=== PATIENT | male | born 1985 | race Caucasian/White ===

== ENCOUNTER 2016-11-28 03:57 | Emergency (ER) | payer OTHER ==
[~2016-11-28] VITALS: Ht 182.9 cm; Wt 86.6 kg
[~2016-11-28 03:57] MED LIST: ZOFRAN ODT4 MG PO
[2016-11-28] MEDS ORDERED: NAPROXEN500 MG PO (05:19)
[2016-11-28] MEDS ORDERED: NORCO 5/3251 TABLET PO (05:49)
[2016-11-28 05:52] VITALS: BP 101/76
== END 2016-11-28 05:52 | disposition home or self-care (01) ==
LOC: EME 03:57
DX: S80.11XA Contusion of right lower leg, initial encounter (principal); S96.911A Strain of unspecified muscle and tendon at ankle and foot level, right foot, initial encounter; W22.8XXA Striking against or struck by other objects, initial encounter
CPT/HCPCS: 73552; 73610; 99281; 99283

== ENCOUNTER 2016-12-05 13:10 | Emergency (ER) | payer OTHER ==
[~2016-12-05] VITALS: Ht 185.4 cm; Wt 87.8 kg
[~2016-12-05 13:10] MED LIST changes: +NAPROXEN500 MG PO; +NORCO 5/3251 TABLET PO
[2016-12-05] MEDS ORDERED: ULTRAM50 MG PO (16:47)
[2016-12-05 17:20] VITALS: BP 113/62
== END 2016-12-05 18:14 | disposition home or self-care (01) ==
LOC: EME 13:10 → RME 16:43
DX: M79.651 Pain in right thigh (principal); S70.11XD Contusion of right thigh, subsequent encounter; V49.40XA Driver injured in collision with unspecified motor vehicles in traffic accident, initial encounter
CPT/HCPCS: 99281; 99284

== ENCOUNTER 2017-06-02 11:13 | Emergency (ER) | payer OTHER ==
[~2017-06-02] VITALS: Ht 185.4 cm; Wt 86.4 kg
[~2017-06-02 11:13] MED LIST changes: +ULTRAM50 MG PO
[2017-06-02 12:21] LABS: HEMATOCRIT 42.8 % (38.0-50.0); HEMOGLOBIN 14.8 G/DL (12.5-16.6); MCH 31.4 PG (29.0-34.0); MCHC 34.6 G/DL (30.0-36.0); MCV 90.7 FL (86-99); PLATELET COUNT 240 K/uL (156-360); RBC DIS.WIDTH-CV 12.1 % (11.8-14.6); RED BLOOD COUNT 4.72 M/uL (4.00-5.50); WHITE BLOOD COUNT 6.3 K/uL (4.1-10.2)
[2017-06-02 12:29] LABS: CHLORIDE 103 mEq/L (99-109)
[2017-06-02 12:30] LABS: POTASSIUM 4.4 mEq/L (3.7-5.4); SODIUM 140 mEq/L (136-147)
[2017-06-02 12:31] LABS: GLUCOSE 103 mg/dL (70-99)
[2017-06-02 12:35] LABS: CREATININE 0.8 mg/dL (0.6-1.3); GFR ESTIMATE (CALCULATED) > 59 mL/min/ (58.99-99999)
[2017-06-02 12:36] LABS: UREA NITROGEN (BUN) 11 mg/dL (9-23)
[2017-06-02 12:41] LABS: TROP-I INTERPRETATION NEGATIVE; TROPONIN-I < 0.01 ng/mL (0.0-0.30)
[2017-06-02] MEDS ORDERED: ROBAXIN750 MG PO (15:21)
[2017-06-02] MEDS ORDERED: MOTRIN800 MG PO (15:21)
[2017-06-02 15:31] VITALS: BP 110/79
== END 2017-06-02 15:32 | disposition home or self-care (01) ==
LOC: EME 11:13
DX: R07.89 Other chest pain (principal)
CPT/HCPCS: 71046; 80048; 84484; 85027; 93005; 99281; 99284